=== PATIENT | female | born 1950 | race Caucasian/White ===

== ENCOUNTER 2016-10-10 05:32 | Observation (INO) | payer MEDICARE, OTHER ==
[~2016-10-10] VITALS: Ht 154.9 cm; Wt 59.0 kg
[2016-10-12] MEDS ORDERED: COZAAR DPS50 MG PO (09:43)
[2016-10-12] MEDS ORDERED: TYLENOL DPS325 MG PO (09:44)
[2016-10-12] MEDS ORDERED: SYNTHROID50 MCG PO (09:44)
[2016-10-12] MEDS ORDERED: ATIVAN-DPS0.5 MG PO (09:44)
[2016-10-12] MEDS ORDERED: LEXAPRO DPS10 MG PO (09:44)
[2016-10-12] MEDS ORDERED: BACITRACIN15 G1 TP (09:45)
--- NOTE | 2016-10-17 09:33 | OR ---
ADMIT: 10/10/2016 RM/LOC: [address] [facility] MR#: [id number] [address] [id number] [address] [place] [place] [address] Operative/Delivery Room Report SEX: F AGE: 66 : 1950 SURGERY DATE: 10/10/2016 SURGEON: Marty Chavez MD PREOPERATIVE DIAGNOSIS: Right thyroid mass. 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 OPERATION: Right thyroid lobectomy, removal of pyramidal lobe with frozen section. ANESTHESIA: General oral endotracheal. BLOOD LOSS: 60 mL. COMPLICATIONS: None. DRAINS: 7 mm Johnny-Penaloza. DESCRIPTION OF PROCEDURE: With the patient in supine position, general endotracheal anesthesia, her eyes were taped. The anterior neck was prepped with ChloraPrep, allowed 3 minutes to dry and the patient draped sterilely. An incision made following natural skin crease that had been marked preoperatively, carried through the skin, subcutaneous tissue, and platysma muscle. Skin flaps elevated superiorly exposing a large, hard pyramidal lobe. The strap muscles were retracted laterally. The right thyroid lobe was large, multi lobulated, and hard. The left lobe also was moderately enlarged and firm. Dissection was begun at the right thyroid lobe. The right thyroid lobe and the pyramidal lobe were excised en-bloc. Dissection was carried out with blunt dissection using hemostats. Afferent and efferent vessels including the superior and inferior thyroid arteries and veins were treated by clamping and coagulation. During the dissection tissue consistent with both the superior and inferior parathyroid glands were identified and preserved. The recurrent laryngeal nerve was identified and preserved. Its function confirmed intact following lobectomy by NIM-2 stimulation. 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 There was no evidence of malignancy. ADMIT: 10/10/2016 RM/LOC: [address] [facility] MR#: [id number] [address] [place] [id number] [address]IN [address] [place] [address] Operative/Delivery Room Report SEX: F AGE: 66 : 1950 The left lobe even though was being abnormal was not significantly enlarged and it too was consistent with Morgan's thyroiditis. I elected not to remove the left lobe since the tissues were benign and reduce the risks of parathyroid or recurrent laryngeal nerve postop dysfunction. The wound was irrigated with saline. Hemostasis was assured. A 7-mm Johnny-Penaloza drain was placed in the wound, brought out through the left side of strap muscle incision. Wound was closed in layers with 3-0 chromic catgut to the midline strap muscles and platysma layer. The skin was closed with a running horizontal mattress suture of 5-0 Prolene. The drain was sutured to the skin with silk. She tolerated this very well. She emerged from general anesthesia in the operating room, was extubated in the operating room, and transferred to the recovery good condition. Marty Chavez MD/ becca JOB #: [id number] CC: Marty Chavez, Attending Physician Richar Green, Family Physician
--- NOTE | 2016-10-17 09:33 | HP ---
ADMIT: 10/10/2016 RM/LOC: [facility] MR#: [id number] [facility] [address] [place], [place] [address] ABRAM GOLDMAN [address] [place] [id number] Pre-OP History and Physical SEX: F AGE: 66 : 1950 DATE OF SERVICE: HISTORY OF PRESENT ILLNESS: Ms. Goldman is 66 years old. She is admitted for right thyroid lobectomy and frozen section to evaluate an enlarging solid right thyroid nodule that presently measures 2.4 x 1.6 cm. She is hypothyroid and has been on thyroid hormone replacement with normal TSH and T4 levels, and despite this, the nodule has increased in size. Excisional biopsy has been recommended. We discussed the rationale for this as well as risks including risks of anesthesia, recurrent laryngeal nerve, parathyroid glands, wound infection and bleeding. She is in acceptance of the recommendation, is admitted at this time for general anesthesia. MEDICATIONS: Prior were: 1. Levothyroxine. 2. Losartan. 3. Lexapro. 4. Lorazepam. 5. Tylenol. ALLERGIES: PENICILLIN. PAST MEDICAL HISTORY: Left submandibular gland resection in 1996, rotator cuff repair in 2016, previous foot surgery, cholecystectomy, and hysterectomy. REVIEW OF SYSTEMS: History of hypertension, presently controlled with medication, and history of stomach ulcer. Does not have lower respiratory disease or asthma, genitourinary, hematologic, or neurologic disorders. SOCIAL HISTORY: She does not use alcohol, but she does drink caffeine and does smoke cigarettes. FAMILY HISTORY: No anesthetic complications. No coagulopathies. PHYSICAL EXAMINATION: GENERAL: A 66-year-old, no acute distress. She is 5 feet 1 inch, 125 pounds. HEENT: Pupils are equal. Conjunctivae clear. No proptosis, exophthalmos, or lid retraction. Ear canals, TMs, and middle ears normal. Nose, mouth, ADMIT: 10/10/2016 RM/LOC: [facility] MR#: [id number] [facility] [address] [place], [place] [address] ABRAM GOLDMAN [address] [place] [id number] Pre-OP History and Physical SEX: F AGE: 66 : 1950 pharynx clear and symmetrical other than mild nicotine mucositis. Larynx good symmetry, structure, and function. No lesions. NECK: Right thyroid mass palpable, firm, nonfluctuant, and nontender. No other neck masses or cervical adenopathy palpable. LUNGS: Clear. HEART: Rhythm regular. EXTREMITIES: Normal. IMPRESSION: Right thyroid mass. PLAN: Excisional biopsy by right thyroid lobectomy with frozen section. Total thyroidectomy if malignancy identified. Marty Chavez MD/ becca JOB #: [id number] CC: Marty Chavez, Attending Physician UNKNOWN, Family Physician
== END 2016-10-11 09:40 | disposition home or self-care (01) ==
LOC: WOR 05:32 → 6PED 09:07
PROVIDERS: ADMIT Otolaryngology
PROC: 0GTH0ZZ Resection of Right Thyroid Gland Lobe, Open Approach (ICD-10-PCS; principal; 2016-10-10)
DX: E06.3 Autoimmune thyroiditis (principal); I10 Essential (primary) hypertension; E03.9 Hypothyroidism, unspecified; F17.210 Nicotine dependence, cigarettes, uncomplicated; Z88.0 Allergy status to penicillin; Z90.49 Acquired absence of other specified parts of digestive tract; Z90.710 Acquired absence of both cervix and uterus; Z87.11 Personal history of peptic ulcer disease; Z98.890 Other specified postprocedural states